=== PATIENT | male | born 1945 | race Caucasian/White ===

== ENCOUNTER 2017-09-12 14:31 | Outpatient (CLI) | payer OTHER | END 2017-09-12 14:45 | disposition home or self-care (01) | LOC: SONOGRAMA 14:31 | DX: M65.4 Radial styloid tenosynovitis [de Quervain] (principal) ==

== ENCOUNTER 2017-09-12 14:46 | Outpatient (CLI) | payer OTHER | END 2017-09-12 14:51 | disposition home or self-care (01) | LOC: RAD 14:46 | DX: M65.4 Radial styloid tenosynovitis [de Quervain] (principal) ==

== ENCOUNTER 2018-11-09 09:00 | Inpatient (IN) | payer OTHER ==
[~2018-11-09] VITALS: Ht 172.7 cm; Wt 88.5 kg
[2018-11-09] MEDS ORDERED: CHLORTALIDONE (14:21)
[2018-11-09] MEDS ORDERED: ATACAND32 MG PO (14:21)
[2018-11-09] MEDS ORDERED: JARDIANCE10 MG PO (14:22)
[2018-11-09] MEDS ORDERED: COREG CR10 MG PO (14:22)
[2018-11-09] MEDS ORDERED: ROSUVASTATIN CAL5 MG PO (14:23)
[2018-11-09] MEDS ORDERED: FINASTERIDE5 MG PO (14:24)
[2018-11-09] MEDS ORDERED: ZETIA10 MG PO (14:24)
[2018-11-09] MEDS ORDERED: AMILODIPINE PO (14:25)
[2018-11-14] MEDS ORDERED: NORVASC2.5 M1 PO (08:27)
[2018-11-14] MEDS ORDERED: CHLORTHALIDONE25 MG PO (08:30)
== END 2018-11-16 18:00 | DRG 470 ==
LOC: SURG 11-14 07:06 → O/R 11-14 07:06 → SURH 11-14 09:00 → SURG 11-14 19:27
PROVIDERS: ADMIT Orthopaedic Surgery
PROC: 0SRC0J9 Replacement of Right Knee Joint with Synthetic Substitute, Cemented, Open Approach (ICD-10-PCS; principal; 2018-11-14 10:00)
DX: M17.11 Unilateral primary osteoarthritis, right knee (principal); I10 Essential (primary) hypertension; E11.9 Type 2 diabetes mellitus without complications; Z79.4 Long term (current) use of insulin